=== PATIENT | female | born 1990 | race Caucasian/White ===

== ENCOUNTER 2024-01-12 12:39 | Observation (INO) | payer MEDICAID ==
[~2024-01-12] VITALS: Ht 162 cm; Wt 68.0 kg
[2024-01-12 14:28] VITALS: BP 107/60; PULSE 82; RESP 18; TEMP 98; O2SAT 100
[2024-01-12 14:53] LABS: BASOPHILS % (AUTO) 0.2 % (0.0-2.0); EOSINOPHILS % (AUTO) 0.2 % (0.0-4.0); HEMATOCRIT 30.1 % (36-48); HEMOGLOBIN 10.1 g/dL (12.0-16.0); LYMPHOCYTES # (AUTO) 1.5 K/uL (2.5-16.5); LYMPHOCYTES % (AUTO) 14.4 % (20.5-51.1); MEAN CORPUSCULAR HEMOGLOBIN 29 pg (27-31); MEAN CORPUSCULAR HGB CONC 33 g/dL (33-37); MEAN CORPUSCULAR VOLUME 87.4 fL (80-94); MONOCYTES # (AUTO) 0.9 K/uL (0.8-1.0); MONOCYTES % (AUTO) 8.3 % (1.7-9.3); NEUTROPHILS % (AUTO) 76.9 % (42.2-75.2); PLATELET COUNT (AUTO) 258 K/uL (140-450); RED BLOOD CELL COUNT(AUTO) 3.44 MIL/uL (4.20-5.40); RED CELL DISTRIBUTION WIDTH 14.9 % (11.6-13.7); WHITE BLOOD COUNT (AUTO) 10.4 K/uL (4.8-10.8)
[2024-01-12 15:04] LABS: APPEARANCE,URINE CLEAR (CLEAR); BILIRUBIN,URINE NEGATIVE (NEGATIVE); BLOOD, URINE NEGATIVE (NEGATIVE); COLOR,URINE YELLOW (YELLOW); LEUKOCYTE ESTERASE ,URINE TRACE (NEGATIVE); NITRITE, URINE NEGATIVE (NEGATIVE); PH,URINE 6.5 (5.0-9.0); PROTEIN,URINE TRACE (NEGATIVE); UGLUCOSE NEGATIVE (NEGATIVE)
[2024-01-12 15:12] LABS: ALBUMIN 2.4 g/dL (3.4-5.0); AMPHETAMINE, URINE NEGATIVE ng/ml (NEG <=1000); ANION GAP 14.1 (8-16); BARBITURATE, URINE NEGATIVE ng/ml (NEG <=200); BENZODIAZEPINE, URINE NEGATIVE ng/mL (NEG <=200); CALCIUM 8.2 mg/dL (8.5-10.1); CANNABINOID, URINE NEGATIVE ng/mL (NEG <=50); CARBON DIOXIDE 21.6 mmol/L (21-32); COCAINE, URINE NEGATIVE ng/mL (NEG <=300); CREATININE 0.5 mg/dL (0.6-1.3); OPIATE, URINE NEGATIVE ng/mL (NEG <=2000); PHENCYCLIDINE SCREEN,URINE NEGATIVE ng/mL (NEG <=25); POTASSIUM 3.7 mmol/L (3.5-5.1); TOTAL BILIRUBIN 0.3 mg/dL (0.0-1.0); TOTAL PROTEIN, SERUM 6.3 g/dL (6.4-8.2)
[2024-01-12 15:16] LABS: BACTERIA,URINE >30 (MANY) /HPF (None Seen); INR 0.92 (0.8-1.2); PARTIAL THROMBOPLASTIN TIME 23.5 secs (22-35.6); PROTHROMBIN TIME 9.7 secs (10.8-13.4); RBC,URINE 0-5 /HPF (0-5); SQUAMOUS EPITHELIAL CELL,UR 4-10 (MOD) /LPF (0-3 (FEW)); WBC,URINE 0-5 /HPF (0-5)
[2024-01-12] MEDS ORDERED: PREN-543 PO (17:06)
== END 2024-01-12 17:15 | disposition home or self-care (01) ==
LOC: EDSTATUS 12:57 → MLD 13:00
PROVIDERS: ADMIT Obstetrics & Gynecology; ATTEND Obstetrics & Gynecology
DX: O62.9 Abnormality of forces of labor, unspecified (principal); O99.891 Other specified diseases and conditions complicating pregnancy; M54.50 Low back pain, unspecified; Z3A.38 38 weeks gestation of pregnancy; Z79.899 Other long term (current) drug therapy
CPT/HCPCS: 36415; 76805; 76819; 80053; 80305; 81001; 85025; 85610; 85730; 86592; 86703; 86762; 86886; 86900; 86901; 87086; 87340; G0378; Q0092